=== PATIENT | male | born 1980 ===

== ENCOUNTER 2024-09-28 11:42 | Inpatient (IN) ==
--- NOTE | 2024-09-28 11:58 | Emergency Department Note ---
Impression & Plan Chest pain Admission ED Provider Note HPI: History obtained from patient. The patient is a 43-year-old gentleman with history of coronary artery disease, status post multiple stents, history of type 2 diabetes, chronic kidney disease, PTSD, obesity, presents emergency department with a chief complaint of acute onset chest pain about 30 minutes prior to arrival. On arrival here to the ED the patient is extremely hypertensive at 261/109, he complains of severe pain substernally, he also has some nausea and vomiting. Patient is otherwise alert, he is saturating well on room air on arrival. ROS: - Per HPI Differential Diagnosis: Acute coronary syndrome, ST elevation myocardial infarction, aortic dissection, acute pancreatitis, small bowel obstruction, pneumothorax, pulmonary embolism, hypertensive emergency, pulmonary edema, amongst other potential pathologies. *Outpatient medications and allergy history reviewed. PE: General: Alert, morbidly obese HEENT: Normocephalic, trachea midline Eyes: Extraocular eye movement is intact, no scleral erythema Pulmonary: Clear to auscultation bilaterally, no wheezing Cardio: Regular rate and rhythm GI: Abdomen is soft to palpation : No suprapubic tenderness MSK: No evidence of trauma or malformation of the extremities, no edema Skin: No evidence of rash Neuro: Alert, no focal deficits Psychiatric: Cooperative INDEPENDENT INTERPRETATIONS: child monitor: (As interpreted by myself): - An order was placed for continuous cardiac monitoring - Patient was noted to be in sinus rhythm with a rate of 85 EKG: (As interpreted by myself): Rate: 73 Rhythm: Normal sinus rhythm Intervals: Within normal limits ST changes: No ST elevation Time: 1145 EKG #2: (As interpreted by myself): Rate: 69 Rhythm: Normal sinus rhythm Intervals: Within normal limits ST changes: No ST elevation Time: 1233 Interventions provided in ED: - IV morphine, IV Zofran, IV labetalol, sublingual nitroglycerin Medical Decision Making: IV was established and lab work obtained, patient was placed on surveillance monitor. Initial EKG does not show any evidence of any ST elevation myocardial infarction. Patient was taken urgently to CT to evaluate for any potential dissection given his markedly elevated blood pressure with complaint of chest pain on arrival. CT angiography of the chest does not show any evidence of any aortic dissection or pulmonary embolism. Patient was given IV morphine and IV Zofran as well as IV labetalol. His blood pressure did gradually downtrend here in the ED and his pain improved although did not completely resolved. Lab work does not show any evidence of any leukocytosis, hemoglobin is normal, platelet count is normal, CMP does not show any evidence of any critical findings. Initial high-sensitivity troponin is negative. EKG as reviewed by myself does not show any evidence of ST elevation myocardial infarction. Repeat EKG was obtained while the patient was still here in the ED as he stated his chest pain came back at 1 point, this was obtained at 1233 and again per my interpretation does not show any evidence of any ST elevation myocardial infarction. Patient's lipase was mildly elevated at 212, he stated he did have a history of pancreatitis, therefore in addition to CT angiography of the chest I ordered CT imaging of the abdomen and pelvis that does not show any evidence of any acute pancreatitis or any critical findings otherwise. I discussed the patient's presentation with on-call [facility] cardiology, Dr. Hernandez, he recommends at this time holding on heparin initiation until repeat troponin is obtained given that the patient has had improvement in his blood pressure and his chest pain. I discussed patient's presentation with the on-call admitting midlevel provider for the [facility] service and the patient was placed for admission in improved condition to the service of Dr. Gilmore. Consultants/Discussions held with other healthcare providers: - Cardiology, Dr. Hernandez - Hospitalist, Dr. Gilmore Disposition discussion held by myself with: - Patient * CRITICAL CARE TIME: ( 45 ) minutes - Management of patient with acute onset chest pain in the setting of severe hypertension requiring IV antihypertensive medications for improvement in addition to IV analgesia. Interpretation of diagnostic studies including multiple EKGs, discussion with cardiology and other healthcare providers and arrangement of admission. Diagnosis: 1. Chest pain, acute 2. Hypertensive urgency, acute 3. History of ACS 4. Elevated lipase, acute 5. Chronic kidney disease, stable Disposition: Admission Regino Elliott DO Emergency Medicine Past Med/Surg History Problem List (Updated 09/28/24 @ 14:59 by Ana Washington PA-C) Hypertensive urgency CAD with hypertension Chest pain PTSD (post-traumatic stress disorder) Anxiety Insomnia Fatty liver CKD (chronic kidney disease), stage III Microalbuminuria due to type 2 diabetes mellitus Type 2 diabetes mellitus with chronic kidney disease Vitamin B12 deficiency Vitamin D deficiency Type 2 diabetes mellitus with proliferative retinopathy Type 2 diabetes mellitus with peripheral neuropathy Uncontrolled type 2 diabetes mellitus with hyperglycemia, with long-term current use of insulin Benign essential hypertension Atherogenic dyslipidemia Coronary artery disease without angina pectoris Medical History Detached retina Myocardial infarct Surgical History S/P PICC central line placement Stented coronary artery Family History Mother Breast cancer Father Hypertension Diabetes Grandfather (Paternal) Diabetes Hypertension Alcoholism Grandmother (Paternal) Heart disease Hypertension Social History Smoking Status: Current every day smoker Tobacco Type: E-cigarettes / Vaping Age Started Using Tobacco: 12; Age Quit Using Tobacco: 40; packs per day: 2; Do You Dip or Chew Tobacco: No; Hx Alcohol Use: Yes Alcohol type: beer and hard liquor Alcohol Intake Frequency: Monthly or Less Alcohol Intake Frequency Comment: 4x year Hx Substance Use: Yes Prescribed Medications: Marijuana Last Used Substance: Days (ago) Preferred Language: Thai Visual Impairment: Blindness Hearing Ability: Normal 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 Beliefs That Will Affect Care: None marital status: Current Living Situation: Family current occupational status: disabled How many Children do You have: 1 Feels Safe at Home: Yes Diet: low carbohydrate caffeine: Yes (2 cups daily) during the past year weight has: decreased > 10 lbs Dental Care, Regularly: Yes Physical Activity Frequency: Does not Exercise Seatbelt Use: always Do you think of yourself as: straight/heterosexual Gender Identity: Male Assistive Devices: Glasses Allergies Allergies Allergy/AdvReac Type Severity Reaction Status Date / Time adhesive Allergy Intermediate Rash Unverified 09/28/24 14:14 adhesive tape Allergy Intermediate Rash Unverified 09/28/24 14:14 No Known Drug Allergies Allergy Verified 08/25/24 11:21 Home Meds Home Medications Medication Instructions Recorded Confirmed cholecalciferol (vitamin D3) 1,250 1,250 mcg PO WK 08/07/24 09/28/24 mcg (50,000 unit) capsule fluticasone propionate 50 2 spray intranasal QDAY 08/07/24 09/28/24 mcg/actuation nasal spray,suspension magnesium 200 mg tablet 200 mg PO DAILY 08/07/24 09/28/24 aspirin 81 mg tablet,delayed 81 mg PO DAILY 08/10/24 09/28/24 release (Adult Low Dose Aspirin) blood-glucose sensor (Dexcom G7 08/10/24 08/25/24 Sensor device) blood-glucose,research test engine evaluator,cont 08/10/24 08/25/24 (Dexcom G7 Sand Carrier) desvenlafaxine 100 mg 200 mg PO DAILY 08/10/24 09/28/24 tablet,extended release 24 hr lorazepam 1 mg tablet (Ativan) 1 mg PO DAILY PRN Anxiety 08/10/24 09/28/24 methylphenidate HCl 20 mg tablet 20 mg PO BID 08/10/24 09/28/24 (Ritalin) zolpidem 10 mg tablet (Ambien) 10 mg PO DAILY PRN Sleep 08/25/24 09/28/24 Previous Rx's Medication Instructions Recorded carvedilol 25 mg tablet 50 mg (2 x 25 mg) PO BID CAD, HTN 08/08/24 #360 tabs clopidogrel 75 mg tablet 75 mg PO DAILY #90 tabs 08/08/24 empagliflozin 25 mg tablet 25 mg PO DAILY #90 tabs 08/08/24 (Jardiance) isosorbide mononitrate 30 mg 30 mg PO DAILY #90 tabs 08/08/24 tablet,extended release 24 hr nifedipine 60 mg tablet,extended 60 mg PO BID #180 tabs 08/08/24 release 24 hr nitroglycerin 0.4 mg sublingual 0.4 mg sublingual Q5M PRN chest 08/08/24 tablet pain #25 tabs omega-3 acid ethyl esters 1 gram 2 cap PO BID #180 caps 08/08/24 capsule rosuvastatin 40 mg tablet 40 mg PO DAILY #90 tabs 08/08/24 blood sugar diagnostic (OneTouch #300 ea 08/10/24 Verio test strips) empty container (BD Sharps #1 ea 08/10/24 Lab Support Service Tech) insulin glargine 100 unit/mL (3 20 unit (0.2 mL) subcut HS #45 mL 08/10/24 mL) subcutaneous pen (Lantus Solostar U-100 Insulin) insulin lispro 100 unit/mL 15 unit (0.15 mL) subcut TID #45 mL 08/10/24 subcutaneous pen (Humalog KwikPen (U-100) Insulin) insulin pump cart,auto,BT,G6/7 #10 ea 08/10/24 (Omnipod 5 G6-G7 Pods (Gen 5) subcutaneous cartridge) insulin pump cartridge,auto #1 ea 08/10/24 dose,BT,G6/G7 with controller subcutaneous (Omnipod 5 G6-G7 Intro Kit(Gen 5) subcutaneous cartridge and controller) lancets 33 gauge (WiTech SpATouch Delica #300 ea 08/10/24 Plus Lancet) metformin 500 mg tablet,extended 500 mg PO BID 90 days #180 tabs 08/10/24 release 24 hr tirzepatide 15 mg/0.5 mL 15 mg (0.5 mL) subcut Q7D #2 mL 08/10/24 subcutaneous pen injector (Mounjaro) blood-glucose meter (WiTech SpATouch #1 ea 08/20/24 Verio Flex Start kit) icosapent ethyl 1 gram capsule 2 g (2 x 1 gram) PO BID #120 caps 09/18/24 (Vascepa) Results & Data (ED) Vital Signs Vital Signs - 24 hr 09/28/24 11:44 09/28/24 11:55 09/28/24 12:15 Temperature 30.3 C L Temperature Source Temporal Artery Scan Pulse Rate 74 Pulse Rate [Left Apical] 76 73 Respiratory Rate 18 Respiratory Effort / Characteristics Non-Labored Spontaneous Respiratory Depth Normal Respiratory Pattern Regular Blood Pressure 261/109 H Blood Pressure [Right Arm] 230/127 H 188/116 H Blood Pressure Mean 159 Blood Pressure Mean [Right Arm] 161 140 Pulse Oximetry 100 100 100 Oxygen Delivery Method Room Air Room Air Room Air Sepsis Recent Fever Within 48 Hours No Sepsis New/Unexplained Change in Mental Status No Sepsis Action Taken by Nursing No Action Required 09/28/24 12:20 09/28/24 12:37 09/28/24 12:37 Temperature Temperature Source Pulse Rate 79 Pulse Rate [Left Apical] 76 72 Respiratory Rate 22 Respiratory Effort / Characteristics Spontaneous Labored Respiratory Depth Normal Respiratory Pattern Regular Blood Pressure Blood Pressure [Right Arm] 169/102 H 187/111 H Blood Pressure Mean Blood Pressure Mean [Right Arm] 124 136 Pulse Oximetry 98 100 Oxygen Delivery Method Room Air Room Air Sepsis Recent Fever Within 48 Hours Sepsis New/Unexplained Change in Mental Status Sepsis Action Taken by Nursing 09/28/24 12:37 09/28/24 12:45 09/28/24 12:50 Temperature Temperature Source Pulse Rate 72 Pulse Rate [Left Apical] 74 80 Respiratory Rate Respiratory Effort / Characteristics Respiratory Depth Respiratory Pattern Blood Pressure 187/111 H Blood Pressure [Right Arm] 164/103 H 171/107 H Blood Pressure Mean Blood Pressure Mean [Right Arm] 123 128 Pulse Oximetry Oxygen Delivery Method Sepsis Recent Fever Within 48 Hours Sepsis New/Unexplained Change in Mental Status Sepsis Action Taken by Nursing 09/28/24 12:56 09/28/24 13:05 Temperature 36.9 C Temperature Source Oral Pulse Rate Pulse Rate [Left Apical] Respiratory Rate Respiratory Effort / Characteristics Respiratory Depth Respiratory Pattern Blood Pressure Blood Pressure [Right Arm] 166/98 H Blood Pressure Mean Blood Pressure Mean [Right Arm] 120 Pulse Oximetry Oxygen Delivery Method Sepsis Recent Fever Within 48 Hours Sepsis New/Unexplained Change in Mental Status Sepsis Action Taken by Nursing Laboratory Data 09/28/24 11:50 09/28/24 11:50 Lab Results 09/28/24 09/28/24 09/28/24 Range/Units 11:50 11:55 14:03 WBC 9.51 (4.8-10.8) K/ul RBC 6.02 (4.70-6.10) M/uL Hgb 17.8 (14.0-18.0) g/dl POC Hgb 19.0 H (14.0-18.0) g/dl Hct 53.9 H (42.0-52.0) % POC Hct 56 H (42-52) % MCV 89.5 (80.0-100.0) fL MCH 29.6 (25.0-34.0) pg MCHC 33.0 (32.0-36.0) g/dL RDW Std Deviation 41.1 (36.4-46.3) fL RDW Coeff of [place] 12.6 (11.5-14.5) % Plt Count 242 (130-400) K/uL MPV 9.6 (9.4-12.4) fL Immature Gran % (Auto) 0.4 % Neut % (Auto) 55.8 % Lymph % (Auto) 31.2 % [place] % (Auto) 8.0 % Eos % (Auto) 3.2 % Baso % (Auto) 1.4 % Neut # (Auto) 5.31 (1.40-6.50) K/uL Lymph # (Auto) 2.97 (1.20-3.40) K/uL [place] # (Auto) 0.76 H (0.11-0.59) K/uL Eos # (Auto) 0.30 (0.00-0.50) K/uL Baso # (Auto) 0.13 (0.00-0.20) K/uL Immature Gran # (Auto) 0.04 (0.01-0.20) K/uL PT 9.8 (9.0-12.0) Seconds INR 0.9 (0.9-1.1) POC Sodium 141 (135-144) mmol/L Sodium 139 (136-145) mmol/L POC Potassium 5.1 H (3.3-5.0) mmol/L Potassium 5.1 (3.5-5.1) mmol/L POC Chloride 103 (101-112) mmol/L Chloride 105 (98-107) mmol/L Carbon Dioxide 26 (21-32) mmol/L POC Total CO2 26 (24-31) mmol/L Anion Gap 8 (3-11) POC Anion Gap 18.0 (16-25) mmol/L POC BUN 35 H (7-18) mg/dl BUN 32 H (6-23) mg/dl Creatinine 1.61 H (0.6-1.4) mg/dl POC Creatinine 1.8 H (0.6-1.3) mg/dl Est Cr Clr Drug Dosing 86.1 ml/min eGFR 54.08 BUN/Creatinine Ratio 19.9 (10-20) Glucose 203 H (70-99(Fasting)) mg/dl POC Glucose (other) 204 H (70-99) mg/dl Calcium 9.9 (8.6-10.3) mg/dl POC Ioniz Calcium Nivia 1.24 (1.12-1.32) mmol/l Total Bilirubin 0.4 (0.2-1.0) mg/dl AST 21 (13-39) U/L ALT 22 (7-52) U/L Alkaline Phosphatase 91 (34-104) U/L Troponin I High Sens 4.5 132.7 H* D (0-20) pg/ml Total Protein 7.3 (6.0-8.3) gm/dl Albumin 4.4 (3.4-5.0) gm/dl Globulin 2.9 (2.5-4.0) gm/dl Albumin/Globulin Ratio 1.5 (0.9-2) Lipase 212 H (11-82) U/L Administered Medications Hydromorphone HCl (Hydromorphone Inj 0.5 Mg/0.5 Ml Syr) 0.5 mg IV Q3H PRN PRN Reason: Pain (8,9,10) Stop: 10/12/24 14:44 Last Admin: 09/28/24 15:03 Dose: 0.5 mg Documented By: LEANNA Nitroglycerin (Nitroglycerin 2% Ointment 30gm Tube) 1 inch EXT Q6H BASIL Stop: 10/28/24 14:59 Last Admin: 09/28/24 15:03 Dose: 1 inch Documented By: LEANNA Discontinued Medications Aspirin (Aspirin Chew 324 Mg) 324 mg PO NOW STA Stop: 09/28/24 12:32 Last Admin: 09/28/24 12:38 Dose: 324 mg Documented By: SIMIN Ioversol (Optiray 320 125ml) 112 ml IV ONCE ONE Stop: 09/28/24 12:05 Last Admin: 09/28/24 12:05 Dose: 112 ml Documented By: GUDELIA Labetalol HCl (Labetalol Hcl Iv 5 Mg/Ml 20ml) 20 mg IV NOW STA Stop: 09/28/24 11:52 Last Admin: 09/28/24 12:00 Dose: 20 mg Documented By: SIMIN Morphine Sulfate (Morphine Sulfate 4 Mg/Ml 1 Ml Carp\Vial) 4 mg IV NOW STA Stop: 09/28/24 11:52 Last Admin: 09/28/24 12:13 Dose: 4 mg Documented By: SIMIN Morphine Sulfate (Morphine Sulfate 4 Mg/Ml 1 Ml Carp\Vial) 4 mg IV NOW STA Stop: 09/28/24 12:27 Last Admin: 09/28/24 12:38 Dose: 4 mg Documented By: SIMIN Nitroglycerin (Nitroglycerin Sl 0.4 Mg/Tab Tab) 0.4 mg SL NOW STA Stop: 09/28/24 12:31 Last Admin: 09/28/24 12:38 Dose: 0.4 mg Documented By: SIMIN Ondansetron HCl (Ondansetron Inj 2 Mg/Ml 2 Ml Vial) 4 mg IV NOW STA Stop: 09/28/24 11:52 Last Admin: 09/28/24 12:13 Dose: 4 mg Documented By: [facility] Imaging Data Radiologist's Impression: Chest CTA 09/28/24 11:56 CT angio chest dissec wo/w con CT DOSE: 1872.04 mGy.cm HISTORY: 43 years-old Male with CP, HTN. Acute chest pain with hypertension TECHNIQUE: Multiple CTA images of the chest were obtained with and without the intravenous administration of 112 ml Optiray. Coronal and sagittal MIPS were obtained from the axial data set and were submitted for review. All measurements were obtained according to NASCET criteria. A dose lowering technique was utilized adhering to the principles of ALARA. COMPARISON: None. FINDINGS: CTA: Heart is normal in size without pericardial effusion. Moderate to extensive coronary artery calcifications. There is no thoracic aortic aneurysm or dissection. Patency of the imaged great vessels. No intramural or mediastinal hematoma. CT CHEST: Unremarkable thyroid. No lymphadenopathy. No pneumothorax, pleural effusion, airspace consolidation or pulmonary edema. Central airways are patent. No acute upper abdominal abnormality. The soft tissues are within normal limits. No acute fracture. IMPRESSION: 1. No acute aortic pathology or pulmonary emboli. 2. Age advanced coronary artery calcifications. 3. No pleural effusion or airspace consolidation. ACT 112: Negative or not required by law. The above report was generated using voice recognition software. It may contain grammatical, syntax or spelling errors. Electronically signed by: Demarcus Patel M.D. 09/28/2024 12:25 PM Abdomen/Pelvis CT 09/28/24 13:16 CT OF THE ABDOMEN AND PELVIS WITHOUT CONTRAST CLINICAL HISTORY: Chest pain, upper abdominal pain, elevated lipase COMPARISON STUDY: Chest CT performed earlier today. TECHNIQUE: Axial images of the abdomen and pelvis were obtained without IV contrast. Images were reviewed in the axial, sagittal, and coronal planes. Automated exposure control was utilized for the study. A dose lowering technique was utilized adhering to the principles of ALARA. FINDINGS: Extensive coronary artery calcification is incidentally noted. A 3 mm left lower lobe pulmonary nodule is likely benign. No pneumatosis, free air or portal venous gas is present. Incidental note is made of excreted contrast within the ureters, collecting systems and bladder from recent contrast-enhanced chest CT. There is no hydronephrosis. Sensitivity for detection of urinary calculi is diminished on this exam given excreted contrast. Unenhanced images of the liver, spleen, adrenal glands and pancreas are unremarkable. No peripancreatic inflammation is present. There are no peripancreatic fluid collections. No biliary or pancreatic ductal dilatation is present. The appendix is normal. There is no evidence for a bowel obstruction. There is colonic diverticulosis without evidence for acute diverticulitis. There is no lymphadenopathy. No fluid collections are present. There is no ascites. IMPRESSION: 1. No CT evidence for acute pancreatitis on unenhanced study. 2. No biliary or pancreatic ductal dilatation. 3. No bowel obstruction. No definite bowel wall thickening. ACT 112: Negative or not required by law. Electronically signed by: Alvarado Leyva M.D. 09/28/2024 2:06 PM Discharge Plan Visit Data Chief Complaint: Cardiac Assessment Stated Complaint: CHEST PAIN ED Provider: Regino Elliott Discharge Problem: Chest pain Forms Stand Alone Forms: [facility] [employer] Prescriptions Prescriptions: No Action (DME) blood-glucose meter [WiTech SpATouch Verio Flex Start] Kit See Rx Instructions .Route Qty: 1 0RF Rx Instructions: test TID when CGM is not working or to calibrate CGM icosapent ethyl [Vascepa] 1 gram capsule 2 g PO BID Qty: 120 2RF cholecalciferol (vitamin D3) 1,250 mcg (50,000 unit) capsule 1,250 mcg PO WK Rx Instructions: Saturday fluticasone propionate 50 mcg/actuation spray,suspension 2 spray intranasal QDAY Rx Instructions: administer into each nostril magnesium 200 mg tablet 200 mg PO DAILY clopidogrel 75 mg tablet 75 mg PO DAILY Qty: 90 3RF Jardiance 25 mg tablet 25 mg PO DAILY Qty: 90 3RF isosorbide mononitrate 30 mg tablet extended release 24 hr 30 mg PO DAILY Qty: 90 3RF nifedipine 60 mg tablet extended release 24hr 60 mg PO BID Qty: 180 3RF nitroglycerin 0.4 mg tablet, sublingual 0.4 mg sublingual Q5M MDD 3 PRN (Reason: chest pain) Qty: 25 3RF Rx Instructions: do not exceed 3 doses per episode rosuvastatin 40 mg tablet 40 mg PO DAILY Qty: 90 3RF omega-3 acid ethyl esters 1 gram capsule 2 cap PO BID Qty: 180 3RF carvedilol 25 mg tablet 50 mg PO BID Qty: 360 3RF Rx Instructions: must administer with a meal/food desvenlafaxine 100 mg tablet extended release 24 hr 200 mg PO DAILY lorazepam [Ativan] 1 mg tablet 1 mg PO DAILY PRN (Reason: Anxiety) methylphenidate HCl [Ritalin] 20 mg tablet 20 mg PO BID aspirin [Adult Low Dose Aspirin] 81 mg tablet,delayed release (DR/EC) 81 mg PO DAILY (DME) Dexcom G7 Sand Carrier Misc See Rx Instructions .Route Rx Instructions: As directed (DME) Dexcom G7 Sensor Device See Rx Instructions .Route Rx Instructions: As directed Mounjaro 15 mg/0.5 mL pen injector 15 mg subcut Q7D Qty: 2 5RF Rx Instructions: Saturday insulin lispro [Humalog KwikPen Insulin] 100 unit/mL insulin pen 15 unit subcut TID Qty: 45 3RF insulin glargine [Lantus Solostar U-100 Insulin] 100 unit/mL (3 mL) insulin pen 20 unit subcut HS Qty: 45 3RF metformin 500 mg tablet extended release 24 hr 500 mg PO BID 90 Days Qty: 180 2RF (DME) Omnipod 5 G6-G7 Intro Kt(Gen5) Cartridge See Rx Instructions .ROUTE .MEDSUPPLY Qty: 1 0RF Rx Instructions: change pod every 3 days (DME) Omnipod 5 G6-G7 Pods (Gen 5) Cartridge See Rx Instructions .ROUTE .MEDSUPPLY Qty: 10 11RF Rx Instructions: change pods every 3 days (DME) BD Sharps Lab Support Service Tech Misc See Rx Instructions .Route Qty: 1 3RF Rx Instructions: As directed (DME) OneTouch Verio test strips Strip See Rx Instructions .Route Qty: 300 3RF Rx Instructions: test blood sugars 3 x daily (DME) lancets [OneTouch Delica Plus Lancet] 33 gauge misc See Rx Instructions .Route Qty: 300 3RF Rx Instructions: test blood sugar 3 x daily zolpidem [Ambien] 10 mg tablet 10 mg PO DAILY PRN (Reason: Sleep) Referrals Referrals: Awa Hoskins MD [Primary Care Provider] -
[2024-09-28] MEDS: LABETALOL HCL IV 5 MG/ML 20ML IV STA (12:00)
[2024-09-28] MEDS: OPTIRAY 320 125ml IV ONE (12:05)
[2024-09-28 12:08] LABS: iSTAT Creatinine 1.8 mg/dl (0.6-1.3); iSTAT Ionized Calcium 1.24 mmol/l (1.12-1.32); iSTAT Potassium 5.1 mmol/L (3.3-5.0)
[2024-09-28] MEDS: MoRPHine SULFATE 4 MG/ML 1 ML CARP\\VIAL IV STA ×2 (12:13→12:38)
[2024-09-28] MEDS: ONDANSETRON INJ 2 MG/ML 2 ML VIAL IV STA (12:13)
--- NOTE | 2024-09-28 12:27 | CT Scan Report ---
CT angio chest dissec wo/w con CT DOSE: 1872.04 mGy.cm HISTORY: 43 years-old Male with CP, HTN. Acute chest pain with hypertension TECHNIQUE: Multiple CTA images of the chest were obtained with and without the intravenous administra tion of 112 ml Optiray. Coronal and sagittal MIPS were obtained from the axial data set and were sub mitted for review. All measurements were obtained according to NASCET criteria. A dose lowering tech nique was utilized adhering to the principles of ALARA. COMPARISON: None. FINDINGS: CTA: Heart is normal in size without pericardial effusion. Moderate to extensive coronary artery calcifica tions. There is no thoracic aortic aneurysm or dissection. Patency of the imaged great vessels. No in tramural or mediastinal hematoma. CT CHEST: Unremarkable thyroid. No lymphadenopathy. No pneumothorax, pleural effusion, airspace consolidation o r pulmonary edema. Central airways are patent. No acute upper abdominal abnormality. The soft tissues are within normal limits. No acute fracture. IMPRESSION: 1. No acute aortic pathology or pulmonary emboli. 2. Age advanced coronary artery calcifications. 3. No pleural effusion or airspace consolidation. ACT 112: Negative or not required by law. The above report was generated using voice recognition software. It may contain grammatical, syntax o r spelling errors. Electronically signed by: Demarcus Patel M.D. 09/28/2024 12:25 PM
[2024-09-28 12:31] LABS: INR 0.9 (0.9-1.1); Prothrombin Time 9.8 Seconds (9.0-12.0)
[2024-09-28 12:36] LABS: Albumin Level 4.4 gm/dl (3.4-5.0); Bilirubin,Total 0.4 mg/dl (0.2-1.0); Calcium 9.9 mg/dl (8.6-10.3); Potassium 5.1 mmol/L (3.5-5.1)
[2024-09-28] MEDS: ASPIRIN CHEW 324 MG PO STA (12:38)
[2024-09-28] MEDS: NITROGLYCERIN SL 0.4 MG/TAB TAB SL STA (12:38)
[2024-09-28 12:39] LABS: Troponin I High Sensitivity 4.5 pg/ml (0-20)
[2024-09-28 12:43] LABS: Albumin Globulin Ratio 1.5 (0.9-2); BUN Creatinine Ratio 19.9 (10-20); Creatinine Clr Calc Pharmacy 86.1 ml/min; Globulin 2.9 gm/dl (2.5-4.0); Total Protein 7.3 gm/dl (6.0-8.3)
[2024-09-28 12:51] LABS: Basophils # (auto) 0.13 K/uL (0.00-0.20); Basophils % (auto) 1.4 %; Eosinophils % (auto) 3.2 %; Hematocrit (blood only) 53.9 % (42.0-52.0); Hemoglobin 17.8 g/dl (14.0-18.0); Immature Granulocytes # (auto) 0.04 K/uL (0.01-0.20); Immature Granulocytes % (auto) 0.4 %; Lymphocytes # (auto) 2.97 K/uL (1.20-3.40); Lymphocytes % (auto) 31.2 %; Mean Corpuscular Hemoglobin 29.6 pg (25.0-34.0); Mean Corpuscular Volume 89.5 fL (80.0-100.0); Mean Platelet Volume 9.6 fL (9.4-12.4); Monocytes # (auto) 0.76 K/uL (0.11-0.59); Neutrophils # (auto) 5.31 K/uL (1.40-6.50); Neutrophils % (auto) 55.8 %; Platelet Count 242 K/uL (130-400); RDW Coefficient of Variation 12.6 % (11.5-14.5); RDW Standard Deviation 41.1 fL (36.4-46.3); Red Blood Count 6.02 M/uL (4.70-6.10); White Blood Count 9.51 K/ul (4.8-10.8)
--- NOTE | 2024-09-28 14:03 | Electrocardiogram Report ---
Test Reason : Blood Pressure : */* mmHG Vent. Rate : 69 BPM Atrial Rate : 69 BPM P-R Int : 198 ms QRS Dur : 110 ms QT Int : 376 ms P-R-T Axes : 58 37 66 degrees QTcB Int : 402 ms Normal sinus rhythm Poor R wave progression, consider anterior PR vs. lead placement vs. LVH Abnormal ECG When compared with ECG of 28-Sep-2024 11:45, (unconfirmed) No significant change was found Confirmed by Preston Hernandez ([id number]) on 09/28/2024 2:03:23 PM Referred By: REFERRED SELF Confirmed By: Preston Hernandez
--- NOTE | 2024-09-28 14:03 | Electrocardiogram Report ---
Test Reason : Blood Pressure : */* mmHG Vent. Rate : 73 BPM Atrial Rate : 73 BPM P-R Int : 182 ms QRS Dur : 106 ms QT Int : 356 ms P-R-T Axes : 51 -5 72 degrees QTcB Int : 392 ms Normal sinus rhythm Poor R wave progression, consider anterior PR vs. lead placement vs. LVH Abnormal ECG When compared with ECG of 07-Aug-2024 15:19, Questionable change in QRS axis Confirmed by Preston Hernandez ([id number]) on 09/28/2024 2:03:08 PM Referred By: REFERRED SELF Confirmed By: Preston Hernandez
--- NOTE | 2024-09-28 14:08 | CT Scan Report ---
CT OF THE ABDOMEN AND PELVIS WITHOUT CONTRAST CLINICAL HISTORY: Chest pain, upper abdominal pain, elevated lipase COMPARISON STUDY: Chest CT performed earlier today. TECHNIQUE: Axial images of the abdomen and pelvis were obtained without IV contrast. Images were revi ewed in the axial, sagittal, and coronal planes. Automated exposure control was utilized for the chris dy. A dose lowering technique was utilized adhering to the principles of ALARA. FINDINGS: Extensive coronary artery calcification is incidentally noted. A 3 mm left lower lobe pulmo nary nodule is likely benign. No pneumatosis, free air or portal venous gas is present. Incidental no te is made of excreted contrast within the ureters, collecting systems and bladder from recent contra st-enhanced chest CT. There is no hydronephrosis. Sensitivity for detection of urinary calculi is dim inished on this exam given excreted contrast. Unenhanced images of the liver, spleen, adrenal glands and pancreas are unremarkable. No peripancreatic inflammation is present. There are no peripancreatic fluid collections. No biliary or pancreatic ductal dilatation is present. The appendix is normal. Th ere is no evidence for a bowel obstruction. There is colonic diverticulosis without evidence for acut e diverticulitis. There is no lymphadenopathy. No fluid collections are present. There is no ascites. IMPRESSION: 1. No CT evidence for acute pancreatitis on unenhanced study. 2. No biliary or pancreatic ductal dilatation. 3. No bowel obstruction. No definite bowel wall thickening. ACT 112: Negative or not required by law. Electronically signed by: Alvarado Leyva M.D. 09/28/2024 2:06 PM
[2024-09-28] MEDS ORDERED: ONDANSETRON INJ 2 MG/ML 2 ML VIAL IV PRN (14:38)
[2024-09-28] MEDS ORDERED: HYDROmorphone INJ 0.5 MG/0.5 ML SYR IV PRN (14:45)
[2024-09-28] MEDS ORDERED: Heparin IV Adult Wt-Based Standard w/ INITIAL Bolus Protocol IV STA (14:48)
[2024-09-28] MEDS: NITROGLYCERIN 2% OINTMENT 30GM TUBE EXT SCH (15:03)
[2024-09-28] MEDS: HYDROmorphone INJ 0.5 MG/0.5 ML SYR IV PRN (15:03)
[2024-09-28] MEDS: HEPARIN SOD (PORCINE) 1000 UNIT/ML IV ONE (15:08)
[2024-09-28] MEDS: HEPARIN SOD (PORCINE) 1000 UNIT/ML ONE (15:09)
[2024-09-28] MEDS: HEPARIN 25000 UNIT/500 ML D5W 25,000 UNITS/500 ML BAG IV SCH (15:09)
--- NOTE | 2024-09-28 15:14 | History & Physical Report ---
Date of Service September 28, 2024 Assessment & Plan (1) Chest pain: (2) CAD with hypertension: (3) Uncontrolled type 2 diabetes mellitus with hyperglycemia, with long-term current use of insulin: (4) CKD (chronic kidney disease), stage III: (5) Hypertensive urgency: Plan This is a 43-year-old gentleman with past medical history of type 2 diabetes, CKD stage III, hypertension, CAD, anxiety, PTSD who presented to the emergency department on with a chief complaint of chest pain. While in the emergency department the patient did have a CBC that was stable. His BMP was stable and his creatinine was 1.61 which was within normal limits for him. His first troponin was 4.5 and his repeat was 132.7. His lipase was mildly elevated at 212 and his LFTs were unremarkable. He did undergo a chest CTA that did reveal no acute aortic pathology or pulmonary emboli. No pleural effusion airspace consolidation. Age advanced coronary artery calcifications. He also had a CTAP that was negative for acute pancreatitis. He had no biliary or pancreatic ductal dilatation and no bowel obstruction. He was given morphine x 2, Zofran, labetalol, nitro, aspirin while in the emergency department. Patient does report that this initially did help with his symptoms but at time of my encounter he was starting to experiencing the chest pain again. 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 BP 261/109 @ time of arrival. History of 3 stents in RCA in 2015 in [place] EKG w/o signs of ischemia x 2 in ED Troponin 4.5 --> 132.7, continue to repeat until starts to downtrend Cardiology consulted, appreciate recommendations. Discussed w/ Dr. Hernandez 09/28 - previous cath in 2023 in [place] revealed no obstruction, thought small vessel disease to be cause of angina at that time. CBC stable/BMP @ baseline renal function. s/p Morphine x 2, Labetalol, and Nitro w/ improvement of BP to 166/98 Heparin drip started, continue Nitro paste q6h Repeat Echo pending, 10/31 EF 60-65% Continue Aspirin, Carvedilol, Plavix, Isosorbide mononitrate, Nifedipine, Statin Dilaudid prn for pain. (per patient this is more effective than morphine for his chest pain) #Type 2 Diabetes A1c 08/2024 -> 7.4% On Lantus 20u, Humalog 15u TID w/ meals, Metformin, Monjuaro, Jardiance outpatient. Continue Lantus 20u daily, added SSI coverage adjust as needed. Chronic conditions: Mental health: Desvenlafaxine, lorazepam prn, Zolpidem prn for insomnia CKD III: creatinine @ baseline 1.6 (range 1.5-1.6) DVT prophylaxis: Heparin drip Code: full Case discussed with Dr. Gilmore and Dr. Hernandez at time of admission. History of Present Illness Primary Care Provider: Awa Hoskins MD This is a 43-year-old gentleman with past medical history of type 2 diabetes, CKD stage III, hypertension, CAD, anxiety, PTSD who presented to the emergency department on with a chief complaint of chest pain. The patient was seen and examined this afternoon. He reports that this morning when he was dropping his daughter at school he started to develop acute substernal chest pain. He states that this started about 30 minutes prior to his arrival in the emergency department. He states that it does intermittently radiate to his back but is typically just seen in his chest region. He states that he did not take his morning medications and this is normal for him. He states that he typically waits to take his medications between 9 to 11 AM. He reports that when he did get here he was experiencing a headache but after his blood pressure has decreased, he noticed that his headache had subsided. He was also nauseous and had a small amount of emesis but this feeling has subsided as well. He denies any abdominal pain or shortness of breath. He does report that his pain worsens when he does take a deep breath. He denies any lower extremity edema. He states that in the past when he has had chest pain it has not been this severe. He denies any urinary symptoms. Patient recently moved to the [facility] from [place]. He does have a history of an [place] with 3 stents placed in his RCA in 2016. About a year ago he also underwent a repeat cardiac catheterization due to chest pain and that did not demonstrate any significant new disease. While in the emergency department the patient did have a CBC that was stable. His BMP was stable and his creatinine was 1.61 which was within normal limits for him. His first troponin was 4.5 and his repeat was 132.7. His lipase was mildly elevated at 212 and his LFTs were unremarkable. He did undergo a chest CTA that did reveal no acute aortic pathology or pulmonary emboli. No pleural effusion airspace consolidation. Age advanced coronary artery calcifications. He also had a CTAP that was negative for acute pancreatitis. He had no biliary or pancreatic ductal dilatation and no bowel obstruction. He was given morphine x 2, Zofran, labetalol, nitro, aspirin while in the emergency department. Patient does report that this initially did help with his symptoms but at time of my encounter he was starting to experiencing the chest pain again. Allergies Allergy/AdvReac Type Severity Reaction Status Date / Time adhesive Allergy Intermediate Rash Unverified 09/28/24 14:14 adhesive tape Allergy Intermediate Rash Unverified 09/28/24 14:14 No Known Drug Allergies Allergy Verified 08/25/24 11:21 Home Medications Medication Instructions Recorded Confirmed Type cholecalciferol (vitamin D3) 1,250 1,250 mcg PO WK 08/07/24 09/28/24 History mcg (50,000 unit) capsule fluticasone propionate 50 2 spray intranasal QDAY 08/07/24 09/28/24 History mcg/actuation nasal spray,suspension magnesium 200 mg tablet 200 mg PO DAILY 08/07/24 09/28/24 History carvedilol 25 mg tablet 50 mg (2 x 25 mg) PO BID CAD, HTN 08/08/24 09/28/24 Rx #360 tabs clopidogrel 75 mg tablet 75 mg PO DAILY #90 tabs 08/08/24 09/28/24 Rx empagliflozin 25 mg tablet 25 mg PO DAILY #90 tabs 08/08/24 09/28/24 Rx (Jardiance) isosorbide mononitrate 30 mg 30 mg PO DAILY #90 tabs 08/08/24 09/28/24 Rx tablet,extended release 24 hr nifedipine 60 mg tablet,extended 60 mg PO BID #180 tabs 08/08/24 09/28/24 Rx release 24 hr nitroglycerin 0.4 mg sublingual 0.4 mg sublingual Q5M PRN chest 08/08/24 09/28/24 Rx tablet pain #25 tabs omega-3 acid ethyl esters 1 gram 2 cap PO BID #180 caps 08/08/24 09/28/24 Rx capsule rosuvastatin 40 mg tablet 40 mg PO DAILY #90 tabs 08/08/24 09/28/24 Rx aspirin 81 mg tablet,delayed 81 mg PO DAILY 08/10/24 09/28/24 History release (Adult Low Dose Aspirin) blood sugar diagnostic ([facility] #300 ea 08/10/24 08/25/24 Rx Verio test strips) blood-glucose sensor (Dexcom G7 08/10/24 08/25/24 History Sensor device) blood-glucose,railroad hand,cont 08/10/24 08/25/24 History (Dexcom G7 Manager Fleet) desvenlafaxine 100 mg 200 mg PO DAILY 08/10/24 09/28/24 History tablet,extended release 24 hr empty container (BD Sharps #1 ea 08/10/24 08/25/24 Rx Case Specialist) insulin glargine 100 unit/mL (3 20 unit (0.2 mL) subcut HS #45 mL 08/10/24 09/28/24 Rx mL) subcutaneous pen (Lantus Solostar U-100 Insulin) insulin lispro 100 unit/mL 15 unit (0.15 mL) subcut TID #45 mL 08/10/24 09/28/24 Rx subcutaneous pen (Humalog KwikPen (U-100) Insulin) insulin pump cart,auto,BT,G6/7 #10 ea 08/10/24 08/25/24 Rx (Omnipod 5 G6-G7 Pods (Gen 5) subcutaneous cartridge) insulin pump cartridge,auto #1 ea 08/10/24 08/25/24 Rx dose,BT,G6/G7 with controller subcutaneous (Omnipod 5 G6-G7 Intro Kit(Gen 5) subcutaneous cartridge and controller) lancets 33 gauge (SIVIuch Delica #300 ea 08/10/24 08/25/24 Rx Plus Lancet) lorazepam 1 mg tablet (Ativan) 1 mg PO DAILY PRN Anxiety 08/10/24 09/28/24 History metformin 500 mg tablet,extended 500 mg PO BID 90 days #180 tabs 08/10/24 09/28/24 Rx release 24 hr methylphenidate HCl 20 mg tablet 20 mg PO BID 08/10/24 09/28/24 History (Ritalin) tirzepatide 15 mg/0.5 mL 15 mg (0.5 mL) subcut Q7D #2 mL 08/10/24 09/28/24 Rx subcutaneous pen injector (Mounjaro) blood-glucose meter (OneTouch #1 ea 08/20/24 08/25/24 Rx Verio Flex Start kit) zolpidem 10 mg tablet (Ambien) 10 mg PO DAILY PRN Sleep 08/25/24 09/28/24 History icosapent ethyl 1 gram capsule 2 g (2 x 1 gram) PO BID #120 caps 09/18/24 09/28/24 Rx (Vascepa) Past Med/Surg History Problem List (Updated 09/28/24 @ 15:32 by Tino Oleary MD) ACS (acute coronary syndrome) Hypertensive urgency CAD with hypertension Chest pain PTSD (post-traumatic stress disorder) Anxiety Insomnia Fatty liver CKD (chronic kidney disease), stage III Microalbuminuria due to type 2 diabetes mellitus Type 2 diabetes mellitus with chronic kidney disease Vitamin B12 deficiency Vitamin D deficiency Type 2 diabetes mellitus with proliferative retinopathy Type 2 diabetes mellitus with peripheral neuropathy Uncontrolled type 2 diabetes mellitus with hyperglycemia, with long-term current use of insulin Benign essential hypertension Atherogenic dyslipidemia Coronary artery disease without angina pectoris Medical History Detached retina Myocardial infarct Surgical History S/P PICC central line placement Stented coronary artery Family History Mother Breast cancer Father Hypertension Diabetes Grandfather (Paternal) Diabetes Hypertension Alcoholism Grandmother (Paternal) Heart disease Hypertension Social History Smoking Status: Current every day smoker Tobacco Type: E-cigarettes / Vaping Age Started Using Tobacco: 12; Age Quit Using Tobacco: 40; packs per day: 2; Do You Dip or Chew Tobacco: No; Hx Alcohol Use: Yes Alcohol type: beer and hard liquor Alcohol Intake Frequency: Monthly or Less Alcohol Intake Frequency Comment: 4x year Hx Substance Use: Yes Prescribed Medications: Marijuana Last Used Substance: Days (ago) Preferred Language: Bulgarian Visual Impairment: Blindness Hearing Ability: Normal Bottle Labeler Required: No Beliefs That Will Affect Care: None marital status: Current Living Situation: Family current occupational status: disabled How many Children do You have: 1 Feels Safe at Home: Yes Diet: low carbohydrate caffeine: Yes (2 cups daily) during the past year weight has: decreased > 10 lbs Dental Care, Regularly: Yes Physical Activity Frequency: Does not Exercise Seatbelt Use: always Do you think of yourself as: straight/heterosexual Gender Identity: Male Assistive Devices: Glasses Physical Exam Constitutional: WD/WN, vitals as above Eyes: PERRL, conjunctivae normal, anicteric sclerae Respiratory: normal respiratory effort, lungs clear to auscultation Cardiovascular: RRR, no murmur, no edema Gastrointestinal (Abdomen): normal bowel sounds, soft, nontender, no hepatosplenomegaly Neurologic: PERRL, EOMI, accommodation nl, no face palsy, no dysarthria Psychiatric: A+Ox3, euthymic affect Results & Data Results & Data Vital Signs (Past 12 Hours) Vital Signs Temp Pulse Pulse Resp BP BP Pulse Ox 09/28/24 13:05 166/98 H 09/28/24 12:56 36.9 C 09/28/24 12:50 80 171/107 H 09/28/24 12:45 74 164/103 H 09/28/24 12:37 72 187/111 H 09/28/24 12:37 79 09/28/24 12:37 72 22 187/111 H 100 09/28/24 12:20 76 169/102 H 98 09/28/24 12:15 73 188/116 H 100 09/28/24 11:55 76 230/127 H 100 09/28/24 11:44 30.3 C L 74 18 261/109 H 100 O2 Del Method 09/28/24 13:05 09/28/24 12:56 09/28/24 12:50 09/28/24 12:45 09/28/24 12:37 09/28/24 12:37 09/28/24 12:37 Room Air 09/28/24 12:20 Room Air 09/28/24 12:15 Room Air 09/28/24 11:55 Room Air 09/28/24 11:44 Room Air Supervising Physician Co-Signing Physician Notes The patient was seen by me. The chart was reviewed. Case discussed with CHAZ Gonzalez. Due to persistent chest discomfort resembling his previous coronary symptoms along with troponin elevation, a heart alert was called. He is now on a heparin drip. He will most likely undergo emergent cardiac catheterization PG Care Time/CCT Total # of Minutes Spent Total Time Spent with Patient: Total time spent is greater than 50% in coordination of care (as documented) at patient's floor/unit and/or counseling patient: Coding Level of Care Code 03742 INT INP/OBS CARE 3/75MIN Diagnoses Chest pain R07.9 CAD with hypertension I25.10; I10 Uncontrolled type 2 diabetes mellitus with hyperglycemia, with long-term current use of insulin E11.65; Z79.4 CKD (chronic kidney disease), stage III N18.30 Hypertensive urgency I16.0
[2024-09-28] MEDS: HEPARIN 25000 UNIT/500 ML D5W IV ONE (15:18)
--- NOTE | 2024-09-28 15:30 | Pre Anesthesia Assessment ---
Date of Service September 28, 2024 Pre Sedation Assessment Vital Signs Temp Pulse Pulse Resp BP BP Pulse Ox 09/28/24 13:05 166/98 H 09/28/24 12:56 98.4 F 09/28/24 12:50 80 171/107 H 09/28/24 12:45 74 164/103 H 09/28/24 12:37 72 187/111 H 09/28/24 12:37 79 09/28/24 12:37 72 22 187/111 H 100 09/28/24 12:20 76 169/102 H 98 09/28/24 12:15 73 188/116 H 100 09/28/24 11:55 76 230/127 H 100 09/28/24 11:44 86.5 F L 74 18 261/109 H 100 O2 Del Method 09/28/24 13:05 09/28/24 12:56 09/28/24 12:50 09/28/24 12:45 09/28/24 12:37 09/28/24 12:37 09/28/24 12:37 Room Air 09/28/24 12:20 Room Air 09/28/24 12:15 Room Air 09/28/24 11:55 Room Air 09/28/24 11:44 Room Air Cardiovascular + regular rate Respiratory + respiratory effort normal Pre-Sedation Airway Assessment Smoking Status: Current every day smoker Hx Sleep Apnea: No Hx Difficult Intubation: No Short, Thick Neck: No Thyromental Distance: < 3.5 Finger Breadths Oral Cavity: + Dental Abnormalities Mallampati Class: III ASA: ASA4 Procedure Planning Contraindications for Sedation: none Current Medications Reviewed: Yes Notes The planned sedation has been discussed with the patient. Informed Consent was obtained. I have identified the patient, determined the appropriateness of sedation and have assessed the patient immediately prior to the procedure. All medicine(s) and interventions are by my order.
--- NOTE | 2024-09-28 15:32 | Cardiology Consultation ---
Date of Consultation September 28, 2024 Assessment & Plan (1) ACS (acute coronary syndrome): Presentation concerning for high risk ACS and recommend proceeding with urgent cardiac catheterization and possible PCI. Will attempt to limit contrast dye with patient's baseline CKD and earlier CT scans. No other contraindications to procedure. Discussed risks, benefits, alternatives of procedure with patient and he wishes to proceed. Given IV heparin and ticagrelor 180 mg in the ED. Further recommendations pending findings of coronary angiography. History of Present Illness History of Present Illness 42-year-old man with history of CAD here with acute chest pain reminiscent of prior GA. Patient seen emergently in the ED after heart alert activated serial ECGs. Primary vamper is Dr. Menendez. Recently moved to the area from [place]. Past cardiac history remarkable for premature CAD with prior inferior GA and multiple stents placed to RCA in 2015. Reportedly underwent repeat cardiac cath 07/2023 without significant new acute disease (?small vessel disease). Other medical issues include type 2 diabetes, complicated by peripheral neuropathy, CKD. Also with hypertension, dyslipidemia and class I obesity. Chest pain began this morning around 11 AM after dropping his daughter off at school. Describes substernal pain radiating to his back with associated nausea. On arrival to ED hypertensive with reported blood pressures up into the 260s over 100s. Initial ECG showed sinus rhythm with subtle inferior convex up ST elevation without reciprocal changes. Initial HS TropI 4.5, subsequently trended up to 132 2 hours later. Subsequent ECGs questionably more prominent inferior changes. Received labetalol, fentanyl/Dilaudid, Nitropatch and started on heparin drip. Patient with continued and worsening chest pain and heart alert activated around 3:15 PM. Chest CTA negative for aortic pathology or PE. CT of abdomen/pelvis unremarkable. Allergies Allergy/AdvReac Type Severity Reaction Status Date / Time adhesive Allergy Intermediate Rash Unverified 09/28/24 14:14 adhesive tape Allergy Intermediate Rash Unverified 09/28/24 14:14 No Known Drug Allergies Allergy Verified 08/25/24 11:21 Home Medications Medication Instructions Recorded Confirmed Type cholecalciferol (vitamin D3) 1,250 1,250 mcg PO WK 08/07/24 09/28/24 History mcg (50,000 unit) capsule fluticasone propionate 50 2 spray intranasal QDAY 08/07/24 09/28/24 History mcg/actuation nasal spray,suspension magnesium 200 mg tablet 200 mg PO DAILY 08/07/24 09/28/24 History carvedilol 25 mg tablet 50 mg (2 x 25 mg) PO BID CAD, HTN 08/08/24 09/28/24 Rx #360 tabs clopidogrel 75 mg tablet 75 mg PO DAILY #90 tabs 08/08/24 09/28/24 Rx empagliflozin 25 mg tablet 25 mg PO DAILY #90 tabs 08/08/24 09/28/24 Rx (Jardiance) isosorbide mononitrate 30 mg 30 mg PO DAILY #90 tabs 08/08/24 09/28/24 Rx tablet,extended release 24 hr nifedipine 60 mg tablet,extended 60 mg PO BID #180 tabs 08/08/24 09/28/24 Rx release 24 hr nitroglycerin 0.4 mg sublingual 0.4 mg sublingual Q5M PRN chest 08/08/24 09/28/24 Rx tablet pain #25 tabs omega-3 acid ethyl esters 1 gram 2 cap PO BID #180 caps 08/08/24 09/28/24 Rx capsule rosuvastatin 40 mg tablet 40 mg PO DAILY #90 tabs 08/08/24 09/28/24 Rx aspirin 81 mg tablet,delayed 81 mg PO DAILY 08/10/24 09/28/24 History release (Adult Low Dose Aspirin) blood sugar diagnostic (OneTouch #300 ea 08/10/24 08/25/24 Rx Verio test strips) blood-glucose sensor (Dexcom G7 08/10/24 08/25/24 History Sensor device) blood-glucose,accounts clerk,cont 08/10/24 08/25/24 History (Dexcom G7 Milling Supervisor) desvenlafaxine 100 mg 200 mg PO DAILY 08/10/24 09/28/24 History tablet,extended release 24 hr empty container (BD Sharps #1 ea 08/10/24 08/25/24 Rx Qa Consultant) insulin glargine 100 unit/mL (3 20 unit (0.2 mL) subcut HS #45 mL 08/10/24 09/28/24 Rx mL) subcutaneous pen (Lantus Solostar U-100 Insulin) insulin lispro 100 unit/mL 15 unit (0.15 mL) subcut TID #45 mL 08/10/24 09/28/24 Rx subcutaneous pen (Humalog KwikPen (U-100) Insulin) insulin pump cart,auto,BT,G6/7 #10 ea 08/10/24 08/25/24 Rx (Omnipod 5 G6-G7 Pods (Gen 5) subcutaneous cartridge) insulin pump cartridge,auto #1 ea 08/10/24 08/25/24 Rx dose,BT,G6/G7 with controller subcutaneous (Omnipod 5 G6-G7 Intro Kit(Gen 5) subcutaneous cartridge and controller) lancets 33 gauge (OneTouch Delica #300 ea 08/10/24 08/25/24 Rx Plus Lancet) lorazepam 1 mg tablet (Ativan) 1 mg PO DAILY PRN Anxiety 08/10/24 09/28/24 History metformin 500 mg tablet,extended 500 mg PO BID 90 days #180 tabs 08/10/24 09/28/24 Rx release 24 hr methylphenidate HCl 20 mg tablet 20 mg PO BID 08/10/24 09/28/24 History (Ritalin) tirzepatide 15 mg/0.5 mL 15 mg (0.5 mL) subcut Q7D #2 mL 08/10/24 09/28/24 Rx subcutaneous pen injector (Mounjaro) blood-glucose meter (RevcasterTouch #1 ea 08/20/24 08/25/24 Rx Verio Flex Start kit) zolpidem 10 mg tablet (Ambien) 10 mg PO DAILY PRN Sleep 08/25/24 09/28/24 History icosapent ethyl 1 gram capsule 2 g (2 x 1 gram) PO BID #120 caps 09/18/24 09/28/24 Rx (Vascepa) Patient History Medical History Detached retina Myocardial infarct Surgical History S/P PICC central line placement Stented coronary artery Family History Mother Breast cancer Father Hypertension Diabetes Grandfather (Paternal) Diabetes Hypertension Alcoholism Grandmother (Paternal) Heart disease Hypertension Social History Smoking Status: Current every day smoker Tobacco Type: E-cigarettes / Vaping Age Started Using Tobacco: 12; Age Quit Using Tobacco: 40; packs per day: 2; Do You Dip or Chew Tobacco: No; Hx Alcohol Use: Yes Alcohol type: beer and hard liquor Alcohol Intake Frequency: Monthly or Less Alcohol Intake Frequency Comment: 4x year Hx Substance Use: Yes Prescribed Medications: Marijuana Last Used Substance: Days (ago) Preferred Language: Divehi Visual Impairment: Blindness Hearing Ability: Normal Joint Setter Required: No Beliefs That Will Affect Care: None marital status: Current Living Situation: Family current occupational status: disabled How many Children do You have: 1 Feels Safe at Home: Yes Diet: low carbohydrate caffeine: Yes (2 cups daily) during the past year weight has: decreased > 10 lbs Dental Care, Regularly: Yes Physical Activity Frequency: Does not Exercise Seatbelt Use: always Do you think of yourself as: straight/heterosexual Gender Identity: Male Assistive Devices: Glasses Review of Systems Review of Systems: All systems reviewed & are unremarkable except as noted in HPI & below Physical Exam Physical Exam: General: Uncomfortable, appears in severe pain HEENT: Sclerae anicteric Lungs: Clear to auscultation anteriorly Cardiac: Regular rate and rhythm, no murmurs. Vascular: 2+ radial bilaterally Abdomen: Soft, nontender Extremities: Well perfused, no peripheral edema Neuro: Nonfocal Psych: Alert orient x3 Results & Data Vital Signs (Past 12 Hours) Vital Signs Temp Pulse Pulse Resp BP BP Pulse Ox 09/28/24 13:05 166/98 H 09/28/24 12:56 98.4 F 09/28/24 12:50 80 171/107 H 09/28/24 12:45 74 164/103 H 09/28/24 12:37 72 187/111 H 09/28/24 12:37 79 09/28/24 12:37 72 22 187/111 H 100 09/28/24 12:20 76 169/102 H 98 09/28/24 12:15 73 188/116 H 100 09/28/24 11:55 76 230/127 H 100 09/28/24 11:44 86.5 F L 74 18 261/109 H 100 O2 Del Method 09/28/24 13:05 09/28/24 12:56 09/28/24 12:50 09/28/24 12:45 09/28/24 12:37 09/28/24 12:37 09/28/24 12:37 Room Air 09/28/24 12:20 Room Air 09/28/24 12:15 Room Air 09/28/24 11:55 Room Air 09/28/24 11:44 Room Air PG Care Time/CCT Total # of Minutes Spent Total Time Spent with Patient: Total time spent is greater than 50% in coordination of care (as documented) at patient's floor/unit and/or counseling patient: Coding Level of Care Code 87117 ER DEPT VISIT MOD LVL 4 Diagnoses ACS (acute coronary syndrome) I24.9
[2024-09-28] MEDS: fentaNYL citrate PF 100 MCG/2 ML VIAL ONE ×2 (16:09→16:12)
[2024-09-28] MEDS: HEPARIN (PORCINE) 1000 UNIT/ML 10 ML (CATH LAB USE ONLY) ONE (16:09)
[2024-09-28] MEDS: MIDAZOLAM HCL 1 MG/ML 2ML VIAL ONE ×2 (16:11→16:12)
[2024-09-28] MEDS: NITROGLYCERIN/D5W 100MCG/ML 20ML SYR ONE (16:11)
[2024-09-28] MEDS: niCARdipine 2,000 MCG/20 ML SYR ONE (16:11)
--- NOTE | 2024-09-28 16:17 | Post Anesthesia Assessment ---
Date of Service September 28, 2024 Post Sedation Assessment Vital Signs Temp Pulse Pulse Resp BP BP Pulse Ox 09/28/24 13:05 166/98 H 09/28/24 12:56 98.4 F 09/28/24 12:50 80 171/107 H 09/28/24 12:45 74 164/103 H 09/28/24 12:37 72 187/111 H 09/28/24 12:37 79 09/28/24 12:37 72 22 187/111 H 100 09/28/24 12:20 76 169/102 H 98 09/28/24 12:15 73 188/116 H 100 09/28/24 11:55 76 230/127 H 100 09/28/24 11:44 86.5 F L 74 18 261/109 H 100 O2 Del Method 09/28/24 13:05 09/28/24 12:56 09/28/24 12:50 09/28/24 12:45 09/28/24 12:37 09/28/24 12:37 09/28/24 12:37 Room Air 09/28/24 12:20 Room Air 09/28/24 12:15 Room Air 09/28/24 11:55 Room Air 09/28/24 11:44 Room Air Recovery Score Activity: Moves 4 extremities Respiration: Deep Breath/Cough Circulation: +/-20% PreAnes Value Consciousness: Fully Awake Oxygen Saturation: O2 needed for >90% Discharge Sedation Level of Care: Fast Track Phase II Post Sedation Plan On clinical assessment, the patient appears to have tolerated the sedation without complications. Patient is recovering as anticipated. Patient will continue to be monitored by nursing and may be discharged when sedation discharge criteria are met per below protocol. Upon Completions of procedure up to 15 minutes continue every 5 minute vital signs and the P.A.R. score; then discharge to a Phase I or Fast Track to Phase II per the following guidelines: * Discharge Patient to appropriate Phase II area if PAR is 8 or greater or return to pre- procedure baseline. The post - procedure orders will be as directed. * If PAR score is less than 8 or not return to pre-procedure baseline then patient will follow Phase I monitoring till PAR is reached for Phase II. The Phase I may be done in procedure room or may call to secure a Phase I area. * If naloxone or flumazenil are used for reversal, hold in Phase I for continued monitoring from when last reversal dose was given for a minimum of 60 minutes or longer pending the nurse and/or physician discretion of patient condition before discharge to Phase II. Please call the Sedation Physician to re-evaluate and complete post-note for discharge to Phase II area. Do NOT discharge from procedure sedation or Phase 1 until post- sedation evaluation note is complete by procedure /sedation MD Sedation Discharge Instructions to be given to the patient at discharge to home.
[2024-09-28] MEDS ORDERED: GLUCAGON FOR INJ 1 MG VIAL SQ PRN (16:55)
[2024-09-28] MEDS ORDERED: GLUCOSE 10 TAB/TUBE PO PRN (16:55)
[2024-09-28] MEDS ORDERED: DEXTROSE 50% 50 ML SYRINGE IV PRN (16:55)
[2024-09-28] MEDS ORDERED: CARBOHYDRATES FOR HYPOGLYCEMIA PO PRN (16:55)
[2024-09-28] MEDS ORDERED: GLUCOSE 40% GEL 15 GM TUBE PO PRN (16:55)
--- NOTE | 2024-09-28 16:57 | Cardiac Catheterization ---
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 Status Clinical evaluation leading to the procedure CAD Presenation: Non STEMI Anginal Classification: CCS IV Diagnostic Physicians Name: Tino Oleary MD Closure Device Recommendations: Medical Therapy and/or Counseling Cardiac Cath Procedure Full Procedure Date September 28, 2024 Pre-Procedure Diagnosis Pre-Procedure Diagnosis: Acute Coronary Syndrome AUC Score AUC Score: 8 Post-Procedure Diagnosis Post-Procedure Diagnosis: Severe CAD and Normal Intracardiac Pressures Procedure(s) Performed Procedure(s) Performed: Coronary Angiography and Left Heart Cath Drawer Upfitter Tino Oleary MD Risk Engineer(s) José Estimated Blood Loss Estimated Blood Loss: 15 Medication(s) Medication(s): Clopidogrel, Fentanyl, Heparin, Lidocaine 1%, Nicardipine, Nitroglycerin and Versed Summary of Findings Indication: High risk ACS. History of CAD post inferior RI 2016 with 3 stents RCA Access: 6 Fr slender right radial artery Catheters: [place], diagnostic JL 3.5, EBU 3.5 guide Findings: LM -medium caliber, 30% distal stenosis LAD -medium caliber, 30-40% lateproximal stenosis. Remainder of LAD without significant disease and wraps around apex. Small diagonal subtotally occluded with trickle flow. Circumflex -small to medium caliber, 30% ostial remainder of AV groove circumflex without significant disease. Medium high OM1 (almost ramus) with 40% ostial stenosis. High OM1 bifurcates and medial branch travels in diagonal distribution with 30-40% proximal disease. Lateral OM1 branch without significant disease. OM2 with luminal irregularities. RCA -dominant, medium caliber, mid segment tortuous, patent mid to distal stents with 25% ISR. Jailed RV branch with 80% proximal stenosis. Small RPDA without significant disease. LVEDP -14 Attempted PCI of diagonal Left main cannulated with EBU 3.5 guide Prowater wire placed into distal LAD Attempt made to cross proximal occlusion of diagonal with airplane pilot 50 wire unsuccessful. Occlusion appeared to be more chronic in nature. Wires removed, repeat angiography revealed no complications. Arterial Closure: TR band Summary: 1. Multivessel coronary artery disease - 30% distal left main 30-40% lateproximal LAD. Diagonal subtotally occluded 30% ostial circumflex at bifurcation with high OM1 (40% ostial, 30% proximal medial branch). Mid to distal RCA stents patent with 25% ISR. Jailed RV branch 80% proximal 2. Normal intracardiac filling pressure 3. Attempted PCI to subtotally occluded diagonalocclusion appears chronic. Recommendations: No high risk disease or clear acute lesions to explain patient's presenting symptoms. Suspect symptoms/HS TropI elevation secondary to hypertensive urgency versus coronary vasospasm or transiently occlusive disease with eccentric plaque. Currently feeling better, chest pain improved following improved BP control. Plan to resume heparin infusion after TR band removed. Continue heparin overnight. Topical nitrates restarted. Resume home blood pressure meds. Titrate up home CCB/long-acting nitrates Continued DAPT with aspirin, clopidogrel and ASCVD risk factor modification Trend troponin until peak. Formal echo in morning. Hemodynamics Rest Ao:: 122/83/102 Final Ao: 98/68/82 LV: 102/14 Recommendations Recommendations: Medical Therapy and/or Counseling Radiation Exposure (mGy) 2373 Contrast (mls) 65 Disposition PCU I attest to the content of the Intraoperative Record and any orders documented therein. Any exceptions are noted below. [facility] Card Cath Procedure Codes Cardiac Catheterization Procedure 1: Cardiovascular Cath Procedures: 85977 Coronaries and LHC (+/-LV) Moderate Sedation Procedure 1: Sedation/Anesthesia: 77003 Mod Sedation by the same physician;Init15 Min Child Age 5 & Up Procedure 2: Sedation/Anesthesia: 54338 Mod Sedation by the same physician; Ea [id number] Minutes PG Care Time/CCT Total # of Minutes Spent Total Time Spent with Patient: Total time spent is greater than 50% in coordination of care (as documented) at patient's floor/unit and/or counseling patient:
[2024-09-28] MEDS: ACETAMINOPHEN 325 MG TAB PO PRN (17:25)
[2024-09-28] MEDS: OPTIRAY 350 ONE (17:38)
[2024-09-28] MEDS: IODIXANOL (VISIPAQUE) 320 MG/ML 100ML IV ONE (17:38)
[2024-09-28] MEDS: CLOPIDOGREL BISULFATE 75 MG TAB PO ONE (17:54)
[2024-09-28] MEDS: INSULIN ASPART PER UNIT CHARGE SC SCH (18:45)
[2024-09-28 19:44] VITALS: RESP 18
[2024-09-28] MEDS: carvediloL 25 MG TAB PO SCH (20:34)
[2024-09-28] MEDS: NIFEdipine EXTENDED REL 30 MG TABCR PO SCH (20:34)
[2024-09-28] MEDS: LANTUS PER UNIT CHARGE SQ SCH (20:38)
[2024-09-28] MEDS: METHYLPHENIDATE HCL 10 MG TABLET PO SCH (20:38)
[2024-09-28] MEDS: ZOLPIDEM TARTRATE 5 MG TAB PO PRN (20:43)
[2024-09-28] MEDS ORDERED: Nursing to Pharmacy Communication SCH (21:15)
--- NOTE | 2024-09-28 22:49 | XCELERA ---
[id number] \\[email or web address]_Reports\[id number]
[2024-09-28] MEDS: LORazepam 1 MG TAB PO PRN (23:51)
[2024-09-29 03:22] LABS: ANTI-Xa, UFH(UnfractionatedHep 0.59 IU/ml (0.3-0.7)
[2024-09-29] MEDS: ASPIRIN 81 MG ECTAB PO SCH (08:12)
[2024-09-29] MEDS: ISOSORBIDE MONO EXTENDED REL 30 MG TABCR PO SCH (08:12)
[2024-09-29] MEDS: ROSUVASTATIN CALCIUM 20 MG TAB PO SCH (08:12)
[2024-09-29] MEDS: CLOPIDOGREL BISULFATE 75 MG TAB PO SCH (08:12)
[2024-09-29] MEDS: MAGNESIUM OXIDE 400 MG TAB PO SCH (08:12)
[2024-09-29] MEDS: FLUTICASONE PROPIONATE NA SPR 16 GM BTL NAE SCH (08:13)
[2024-09-29] MEDS: METHYLPHENIDATE HCL 10 MG TABLET PO SCH (08:17)
[2024-09-29 11:37] VITALS: BP 104/74; PULSE 64; TEMP 97.3; O2SAT 93
--- NOTE | 2024-09-29 11:40 | XCELERA ---
[id number] \\[facility]_PDF_Reports\[id number]
--- NOTE | 2024-09-29 14:06 | Cardiology Progress Note ---
Date of Service September 29, 2024 Assessment & Plan (1) CAD (coronary artery disease): Plan: Inferior MT with 3 stents to RCA 2016 ([place]) Stable CAD on repeat cath 07/2023 and 09/2024. 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 Hypertension 3. Type 2 diabetes 4. LVH with asymmetric basal septal hypertrophy, BACILIO on echo 10/02no LVOTO 5. Stage III CKDbaseline SCr 1.5-2.2 6. Type I obesity 7. Prior hyperkalemiaoff VENKATESH/ARB, MRA Chest pain-free, feeling well this morning. HS TropI downtrending. Hemodynamically and electrically stable No apparent access site complications. Reviewed repeat echocardiogram. Normal LV function with LVH and asymmetric basal septal hypertrophy with BACILIO. No significant LVOT obstruction. Inciting event for his severe chest pain yesterday still somewhat unclear. Was hypertensive to 260s and possible hypertensive urgency. Also considered coronary vasospasm and does have some features on echo of hypertrophic cardiomyopathy. Plan: From a cardiac standpoint okay with discharge today For possible vasospasm/LVOT obstruction will discontinue nifedipine and start long-acting diltiazem. Continue current carvedilol. Possibly discontinue Imdur as an outpatient. encouraged him to take his blood pressure medicines first thing in the morning (previously waiting till late morning). Continue DAPT with aspirin, clopidogrel On rosuvastatin 40, tirzepatide and empagliflozin Consider cardiac MR as an outpatient Follow-up in cardiology in 2 weeks Admission and Anticipated Discharge Date Admission Date: September 28, 2024 Subjective Patient feeling well this morning. Woke up this morning with no residual chest pain. States breathing feels better when he takes a deep breath in and has for some time. No other new concerns. Telemetry reviewedno arrhythmia Review of Systems Review of Systems: All systems reviewed & are unremarkable except as noted in HPI & below Physical Exam Physical Exam: General: Comfortable HEENT: Sclerae anicteric Lungs: Clear to auscultation bilaterally, no crackles or wheezes Cardiac: Regular rate and rhythm, no murmurs. Vascular: Right radial artery access site with minimal ecchymosis, no hematoma. Distal pulse and sensation intact. Abdomen: Soft, nontender Extremities: Well perfused, no peripheral edema Neuro: Nonfocal Psych: Alert orient x3, normal affect and mood Results & Data Vital Signs (Past 12 Hours) Vital Signs Temp Pulse Pulse Resp BP Pulse Ox O2 Del Method 09/29/24 13:14 97.3 F L 64 18 104/74 93 09/29/24 11:36 97.3 F L 64 18 104/74 93 Nasal Cannula 09/29/24 07:54 97.9 F 76 18 119/74 96 Room Air 09/29/24 07:14 73 09/29/24 02:50 97.5 F L 66 18 106/71 96 Room Air O2 Flow Rate 09/29/24 13:14 09/29/24 11:36 2 09/29/24 07:54 09/29/24 07:14 09/29/24 02:50 PG Care Time/CCT Total # of Minutes Spent Total Time Spent with Patient: Total time spent is greater than 50% in coordination of care (as documented) at patient's floor/unit and/or counseling patient: Coding Level of Care Code 73223 SUB INP/OBS CARE 3/50MIN Diagnoses CAD (coronary artery disease) I25.10
--- NOTE | 2024-09-29 16:06 | Discharge Summary ---
Date of Service September 29, 2024 Admission HPI Per Admitting Provider This is a 43-year-old gentleman with past medical history of type 2 diabetes, CKD stage III, hypertension, CAD, anxiety, PTSD who presented to the emergency department on with a chief complaint of chest pain. The patient was seen and examined this afternoon. He reports that this morning when he was dropping his daughter at school he started to develop acute substernal chest pain. He states that this started about 30 minutes prior to his arrival in the emergency department. He states that it does intermittently radiate to his back but is typically just seen in his chest region. He states that he did not take his morning medications and this is normal for him. He states that he typically waits to take his medications between 9 to 11 AM. He reports that when he did get here he was experiencing a headache but after his blood pressure has decreased, he noticed that his headache had subsided. He was also nauseous and had a small amount of emesis but this feeling has subsided as well. He denies any abdominal pain or shortness of breath. He does report that his pain worsens when he does take a deep breath. He denies any lower extremity edema. He states that in the past when he has had chest pain it has not been this severe. He denies any urinary symptoms. Patient recently moved to the [facility] from [place]. He does have a history of an PA with 3 stents placed in his RCA in 2016. About a year ago he also underwent a repeat cardiac catheterization due to chest pain and that did not demonstrate any significant new disease. While in the emergency department the patient did have a CBC that was stable. His BMP was stable and his creatinine was 1.61 which was within normal limits for him. His first troponin was 4.5 and his repeat was 132.7. His lipase was mildly elevated at 212 and his LFTs were unremarkable. He did undergo a chest CTA that did reveal no acute aortic pathology or pulmonary emboli. No pleural effusion airspace consolidation. Age advanced coronary artery calcifications. He also had a CTAP that was negative for acute pancreatitis. He had no biliary or pancreatic ductal dilatation and no bowel obstruction. He was given morphine x 2, Zofran, labetalol, nitro, aspirin while in the emergency department. Patient does report that this initially did help with his symptoms but at time of my encounter he was starting to experiencing the chest pain again. Principal Diagnosis Chest pain most likely due to hypertensive emergency versus coronary vasospasm Discharge Exam General: Awake, conversant Heart: S1, S2/regular rate and rhythm, no murmur rubs or gallops Lungs: Clear to auscultation bilaterally. Normal effort Abdomen: Soft/nontender/nondistended. No hepatosplenomegaly Extremities: No clubbing/cyanosis. No edema Behavior: Appropriate, cooperative Discharge Data Allergies Allergy/AdvReac Type Severity Reaction Status Date / Time adhesive Allergy Intermediate Rash Unverified 09/28/24 14:14 adhesive tape Allergy Intermediate Rash Unverified 09/28/24 14:14 No Known Drug Allergies Allergy Verified 08/25/24 11:21 Consultations 09/28/24 13:53 Consult Cardiology Routine 09/28/24 14:25 ED Decision to Admit Stat Procedures Performed Operation Date: 09/28/24 15:15 Actual Procedures s Cineradiography w/Routine Exam - Tino Oleary MD p Cath, Left with Cors and Vent - Tino Oleary MD Ordered Studies 09/28/24 11:56 CT angio chest dissec wo/w con Stat 09/28/24 13:16 CT abd pelvis wo con Stat 09/28/24 15:16 CL Cath Imgs for PACS use only Stat Hospital Course (1) Chest pain: (2) CAD with hypertension: (3) Uncontrolled type 2 diabetes mellitus with hyperglycemia, with long-term current use of insulin: (4) CKD (chronic kidney disease), stage III: (5) Hypertensive urgency: Plan This is a 43-year-old gentleman with past medical history of type 2 diabetes, CKD stage III, hypertension, CAD, anxiety, PTSD who presented to the emergency department on with a chief complaint of chest pain. While in the emergency department the patient did have a CBC that was stable. His BMP was stable and his creatinine was 1.61 which was within normal limits for him. His first troponin was 4.5 and his repeat was 132.7. His lipase was mildly elevated at 212 and his LFTs were unremarkable. He did undergo a chest CTA that did reveal no acute aortic pathology or pulmonary emboli. No pleural effusion airspace consolidation. Age advanced coronary artery calcifications. He also had a CTAP that was negative for acute pancreatitis. He had no biliary or pancreatic ductal dilatation and no bowel obstruction. He was given morphine x 2, Zofran, labetalol, nitro, aspirin while in the emergency department. Martinez cordova does report that this initially did help with his symptoms but at time of my encounter he was starting to experiencing the chest pain again. 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 BP 261/109 @ time of arrival. History of 3 stents in RCA in 2015 in [place] EKG w/o signs of ischemia x 2 in ED Troponin 4.5 --> 132.7, continue to repeat until starts to downtrend Cardiology decided to take the patient to the [facility]. Cardiac catheterization completed on 09/28: Showed no clear lesions or high risk disease that would explain the patient's presenting symptoms. This was most likely due to hypertensive urgency versus coronary vasospasm. Heparin drip was discontinued by cardiology this morning Nifedipine was switched to Cardizem Patient has been advised to follow-up with cardiology in 1 to 2 weeks. Cardiology office will call him. Echocardiogram repeated today, looked unremarkable Patient is chest pain-free Cardiology has cleared the patient for discharge today #Type 2 Diabetes A1c 08/2024 -> 7.4% On Lantus 20u, Humalog 15u TID w/ meals, Metformin, Monjuaro, Jardiance outpatient. Chronic conditions: Mental health: Desvenlafaxine, lorazepam prn, Zolpidem prn for insomnia CKD III: creatinine @ baseline 1.6 (range 1.5-1.6) Discharge to home today Total Time Total Time Spent Total Time Spent (In Minutes): 35 Discharge Plan Discharge Items Patient Disposition: Home - Self-Care Reason For Visit: CHEST PAIN Discharge Diagnosis: Chest pain most likely due to hypertensive emergency versus coronary vasospasm Activity: Resume your previous activity Non-emergency contact: Primary Care Provider Call non-emergency contact if: you have any medication questions and your symptoms worsen Follow-up/Referrals: Tino Oleary MD [Physician] - 10/05/24 2:00 pm (cariology follow up scheduled 10/05/24 at 2:[address] Oleary) Awa Hoskins MD [Primary Care Provider] - 10/07/24 10:00 am (Primary Care hospital follow up scheduled on 10/07/24 at 10:00 with Lacey MERCER) Diet: Carb Consistent or DM2 and Heart Healthy Addtl Attending Provider Instructions: Advised to follow-up with PCP in 1 week Advised to follow-up with environment artist in 1 week Pending Studies at Discharge: No Stand-Alone Forms: My [facility] [place], Smoking Cessation Medications and DC Order Prescriptions: New diltiazem HCl [Cardizem CD] 120 mg capsule,extended release 24hr 120 mg PO DAILY Qty: 30 0RF Continued (DME) blood-glucose meter [KoalaDealTouch Verio Flex Start] Kit See Rx Instructions .Route Qty: 1 0RF Rx Instructions: test TID when CGM is not working or to calibrate CGM icosapent ethyl [Vascepa] 1 gram capsule 2 g PO BID Qty: 120 2RF cholecalciferol (vitamin D3) 1,250 mcg (50,000 unit) capsule 1,250 mcg PO WK Rx Instructions: Saturday fluticasone propionate 50 mcg/actuation spray,suspension 2 spray intranasal QDAY Rx Instructions: administer into each nostril magnesium 200 mg tablet 200 mg PO DAILY clopidogrel 75 mg tablet 75 mg PO DAILY Qty: 90 3RF Jardiance 25 mg tablet 25 mg PO DAILY Qty: 90 3RF isosorbide mononitrate 30 mg tablet extended release 24 hr 30 mg PO DAILY Qty: 90 3RF nitroglycerin 0.4 mg tablet, sublingual 0.4 mg sublingual Q5M MDD 3 PRN (Reason: chest pain) Qty: 25 3RF Rx Instructions: do not exceed 3 doses per episode rosuvastatin 40 mg tablet 40 mg PO DAILY Qty: 90 3RF omega-3 acid ethyl esters 1 gram capsule 2 cap PO BID Qty: 180 3RF carvedilol 25 mg tablet 50 mg PO BID Qty: 360 3RF Rx Instructions: must administer with a meal/food desvenlafaxine 100 mg tablet extended release 24 hr 200 mg PO DAILY lorazepam [Ativan] 1 mg tablet 1 mg PO DAILY PRN (Reason: Anxiety) methylphenidate HCl [Ritalin] 20 mg tablet 20 mg PO BID aspirin [Adult Low Dose Aspirin] 81 mg tablet,delayed release (DR/EC) 81 mg PO DAILY (DME) Dexcom G7 Gift Wrapper Misc See Rx Instructions .Route Rx Instructions: As directed (DME) Dexcom G7 Sensor Device See Rx Instructions .Route Rx Instructions: As directed Mounjaro 15 mg/0.5 mL pen injector 15 mg subcut Q7D Qty: 2 5RF Rx Instructions: Saturday insulin lispro [Humalog KwikPen Insulin] 100 unit/mL insulin pen 15 unit subcut TID Qty: 45 3RF insulin glargine [Lantus Solostar U-100 Insulin] 100 unit/mL (3 mL) insulin pen 20 unit subcut HS Qty: 45 3RF metformin 500 mg tablet extended release 24 hr 500 mg PO BID 90 Days Qty: 180 2RF (DME) Omnipod 5 G6-G7 Intro Kt(Gen5) Cartridge See Rx Instructions .ROUTE .MEDSUPPLY Qty: 1 0RF Rx Instructions: change pod every 3 days (DME) Omnipod 5 G6-G7 Pods (Gen 5) Cartridge See Rx Instructions .ROUTE .MEDSUPPLY Qty: 10 11RF Rx Instructions: change pods every 3 days (DME) BD Sharps Horticultural Nursery Assistant Misc See Rx Instructions .Route Qty: 1 3RF Rx Instructions: As directed (DME) OneTouch Verio test strips Strip See Rx Instructions .Route Qty: 300 3RF Rx Instructions: test blood sugars 3 x daily (DME) lancets [OneTouch Delica Plus Lancet] 33 gauge misc See Rx Instructions .Route Qty: 300 3RF Rx Instructions: test blood sugar 3 x daily zolpidem [Ambien] 10 mg tablet 10 mg PO DAILY PRN (Reason: Sleep) Discontinued nifedipine 60 mg tablet extended release 24hr 60 mg PO BID Qty: 180 3RF Discharge Orders: Discharge Order (Routine); Ordered 09/29/24 Ordered By: Arlette Xiong Admission Data Admit Date/Time: 09/28/24 15:26 Attending Provider: Arlette Xiong Admit Provider: Adin Gilmore Primary Care Provider: Awa Hoskins Other Providers: Preston Hernandez; Adin Gilmore
== END 2024-09-29 14:58 | disposition home or self-care (01) | DRG 287 ==
LOC: ED 11:42 → OR 15:25 → 2S 15:26 → SUATTDRO 15:26